=== PATIENT | male | born 1950 | race Asian ===

== ENCOUNTER 2019-04-30 22:52 | Inpatient (IN) | payer MEDICARE, MEDICAID ==
[~2019-04-30] VITALS: Ht 165.1 cm; Wt 70.9 kg
[2019-04-30] MEDS ORDERED: SODIUM CHLORIDE 0.45% 1,000 ML IV ONE (23:12)
[2019-04-30 23:36] LABS: BG BASE EXCESS -6.7 mmol/L (-2.0-2.0); BG CARBOXYHEMOGLOBIN 0.3 % (0.5-1.5); BG DEOXYHEMOGLOBIN 2.7 % (0.0-5.0); BG FRACTION INSPIRED OXYGEN 21; BG HCO3 ACT 17.4 mmol/L (22.0-26.0); BG METHEMOGLOBIN 0.2 % (0.0-1.5); BG OXYGEN SATURATION 97.3 % (92.0-98.5); BG OXYHEMOGLOBIN 96.8 % (94.0-97.0); BG PH 7.381 (7.350-7.450); BG PO2 100.7 mmHg (75.0-100.0); BG SAMPLE SITE RIGHT RADIAL; BG TOTAL HEMOGLOBIN 10.9 g/dL (12.0-18.0); BG VENT MODE ROOM AIR
[2019-05-01 00:24] LABS: BASOPHILS % 0.5 % (0.0-2.0); EOSINOPHILS % 2.7 % (0.0-5.0); HEMATOCRIT. 35.2 % (36.0-48.0); HEMOGLOBIN. 11.1 g/dL (12.0-16.0); MEAN CORPUSCULAR HEMOGLOBIN 31.9 pg (28.0-32.0); MEAN CORPUSCULAR VOLUME 100.8 fL (81.0-99.0); MEAN PLATELET VOLUME 9.8 fl (7.4-10.4); MONOCYTES % 6.9 % (2.0-8.0); NEUTROPHILS % 73.9 % (40.0-76.0); PLATELET 200 x1000/uL (130-400); RED CELL DISTRIBUTION WIDTH 13.8 % (11.6-14.6)
[2019-05-01 00:29] LABS: CHLORIDE 130 mEq/L (98-107)
[2019-05-01 01:04] LABS: CLARITY URINE TURBID (CLEAR); COLOR URINE YELLOW (YELLOW); KETONES URINE TRACE (NEGATIVE); LEUKOCYTE ESTERASE URINE 3+ (NEGATIVE); NITRITE URINE NEGATIVE (NEGATIVE); OCCULT BLOOD URINE 2+ (NEGATIVE); PROTEIN URINE 2+ (NEGATIVE); SPECIFIC GRAVITY URINE 1.016 (1.005-1.030); UROBILINOGEN URINE 0.2 E.U./dL (0.2-1.0)
[2019-05-01] MEDS ORDERED: CEFTRIAXONE 1 G PREMIX 50 ML IV ONE (02:30)
[2019-05-01] MEDS ORDERED: DEXTROSE 5% WATER 1,000 ML IV SCH (03:28)
[2019-05-01] MEDS ORDERED: ACETAMINOPHEN 650MG/20.3ML UDC PO PRN (03:30)
[2019-05-01] MEDS ORDERED: LORAZEPAM 2MG/ML CPJ IV PRN (03:30)
[2019-05-01] MEDS ORDERED: GUAIFENESIN 200MG/10ML SUGAR FREE UDC PO PRN (03:30)
[2019-05-01] MEDS ORDERED: DOCUSATE SODIUM 100MG CAPSULE PO PRN (03:30)
[2019-05-01] MEDS ORDERED: LEVOFLOXACIN 500MG PREMIX 100 ML IV SCH ×2 (03:30→10:00)
[2019-05-01] MEDS ORDERED: MAGNESIUM/ALUMINUM HYDROXIDE/SIMETHICONE 30ML UDC PO PRN (03:30)
[2019-05-01] MEDS ORDERED: ONDANSETRON HCL 4MG/2ML INJ IV PRN (03:30)
[2019-05-01] MEDS ORDERED: CLONIDINE 0.1MG TABLET PO PRN (03:30)
[2019-05-01] MEDS ORDERED: AMLO10TA80 PO (07:14)
[2019-05-01] MEDS ORDERED: AMIN30LI2 PO (07:14)
[2019-05-01] MEDS ORDERED: LIP40 PO (07:14)
[2019-05-01] MEDS ORDERED: MIRT-91 PO (07:14)
[2019-05-01] MEDS ORDERED: SENN-170 PO (07:14)
[2019-05-01] MEDS ORDERED: INSU100I24 SQ (07:14)
[2019-05-01] MEDS ORDERED: TAMS-11 PO (07:14)
[2019-05-01] MEDS ORDERED: POLY15DR31 EACHEYE (07:14)
[2019-05-01] MEDS ORDERED: LOSA100T32 PO (07:14)
[2019-05-01] MEDS ORDERED: CYAN50008 PO (07:14)
[2019-05-01] MEDS: AMLODIPINE 10MG TABLET PO SCH (09:30)
[2019-05-01] MEDS: ENOXAPARIN 30MG/0.3ML SYR SUBCUT SCH (09:30)
[2019-05-01] MEDS: DEXTROSE 5% WATER 1,000 ML IV SCH (10:52)
[2019-05-01 12:00] VITALS: BP 133/49
[2019-05-01 12:21] VITALS: BP 133/49
[2019-05-01] MEDS: SENNOSIDES 8.6MG TABLET PO SCH (13:20)
[2019-05-01 16:00] VITALS: BP 127/75
[2019-05-01 20:00] VITALS: BP 133/53
[2019-05-01] MEDS: ATORVASTATIN CALCIUM 40MG TABLET PO SCH (21:00)
[2019-05-01] MEDS: MIRTAZAPINE 15MG TABLET PO SCH (21:00)
[2019-05-01] MEDS: TAMSULOSIN HCL 0.4MG SR CAPSULE PO SCH (21:00)
[2019-05-02] VITALS: BP 131/65
[2019-05-02] MEDS: DEXTROSE 5% WATER 1,000 ML IV SCH ×2 (00:13→12:49)
[2019-05-02 04:00] VITALS: BP 133/71
[2019-05-02 05:37] LABS: CHLORIDE 129 mEq/L (98-107)
[2019-05-02 06:16] LABS: BASOPHILS % 0.5 % (0.0-2.0); EOSINOPHILS % 3.2 % (0.0-5.0); HEMATOCRIT. 31.4 % (42.0-52.0); LYMPHOCYTES % 16.3 % (20.0-50.0); MEAN CORPUSCULAR HEMOGLOBIN 31.6 pg (28.0-32.0); MEAN CORPUSCULAR VOLUME 99.2 fL (80.0-94.0); MEAN PLATELET VOLUME 10.6 fl (7.4-10.4); MONOCYTES % 6.2 % (2.0-8.0); NEUTROPHILS % 73.8 % (40.0-76.0); PLATELET 155 x1000/uL (130-400); RED BLOOD CELL COUNT 3.16 mill/uL (4.7-6.1); RED CELL DISTRIBUTION WIDTH 13.2 % (11.6-14.6)
[2019-05-02 08:00] VITALS: BP 125/75
[2019-05-02] MEDS: AMLODIPINE 10MG TABLET PO SCH (09:00)
[2019-05-02] MEDS: SENNOSIDES 8.6MG TABLET PO SCH (09:00)
[2019-05-02] MEDS: LOSARTAN POTASSIUM 100 MG TABLET PO SCH (09:00)
[2019-05-02] MEDS: LEVOFLOXACIN 250MG PREMIX 50 ML IV SCH (09:15)
[2019-05-02] MEDS: ENOXAPARIN 30MG/0.3ML SYR SUBCUT SCH (09:15)
[2019-05-02 12:00] VITALS: BP 128/69
[2019-05-02 16:00] VITALS: BP 117/57
[2019-05-02 20:00] VITALS: BP 135/85
[2019-05-02] MEDS: ATORVASTATIN CALCIUM 40MG TABLET PO SCH ×2 (20:28→20:37)
[2019-05-02] MEDS: MIRTAZAPINE 15MG TABLET PO SCH ×2 (20:28→20:37)
[2019-05-02] MEDS: TAMSULOSIN HCL 0.4MG SR CAPSULE PO SCH ×2 (20:29→20:36)
[2019-05-03] VITALS: BP 142/75
[2019-05-03] MEDS: DEXTROSE 5% WATER 1,000 ML IV SCH (03:43)
[2019-05-03 04:00] VITALS: BP 132/69
[2019-05-03 07:49] LABS: BASOPHILS % 0.3 % (0.0-2.0); EOSINOPHILS % 2.3 % (0.0-5.0); HEMATOCRIT. 33.5 % (42.0-52.0); LYMPHOCYTES % 15.2 % (20.0-50.0); MEAN CORPUSCULAR HEMOGLOBIN 31.5 pg (28.0-32.0); MEAN CORPUSCULAR VOLUME 96.1 fL (80.0-94.0); MEAN PLATELET VOLUME 10.6 fl (7.4-10.4); MONOCYTES % 6.2 % (2.0-8.0); PLATELET 154 x1000/uL (130-400); RED BLOOD CELL COUNT 3.48 mill/uL (4.7-6.1); RED CELL DISTRIBUTION WIDTH 12.9 % (11.6-14.6)
[2019-05-03 07:56] LABS: CHLORIDE 120 mEq/L (98-107)
[2019-05-03 08:00] VITALS: BP 104/56
[2019-05-03] MEDS: SENNOSIDES 8.6MG TABLET PO SCH (08:43)
[2019-05-03] MEDS: LOSARTAN POTASSIUM 100 MG TABLET PO SCH (08:44)
[2019-05-03] MEDS: AMLODIPINE 10MG TABLET PO SCH (08:44)
[2019-05-03] MEDS: ENOXAPARIN 30MG/0.3ML SYR SUBCUT SCH (09:18)
[2019-05-03] MEDS: LEVOFLOXACIN 250MG PREMIX 50 ML IV SCH (09:18)
[2019-05-03 12:00] VITALS: BP_SYST 142; BP_SYST 144; BP_DIAS 72; BP_DIAS 86
[2019-05-03 16:00] VITALS: BP 142/72
[2019-05-03 16:09] VITALS: BP 142/72
[2019-05-04] MEDS ORDERED: ENOXAPARIN 40MG/0.4ML SYR SUBCUT SCH (09:00)
== END 2019-05-03 19:10 | DRG 640 ==
LOC: ER 22:52 → EDSEX 05-01 02:26 → 5WST 05-01 02:26 → EDBEDREQTM 05-01 02:32 → EDBEDREQDT 05-01 02:32 → EDBEDREQ 05-01 02:32 → ENRESERV 05-01 04:43
PROVIDERS: ADMIT Hospitalist; ATTEND Hospitalist
DX: E87.0 Hyperosmolality and hypernatremia (principal); N17.0 Acute kidney failure with tubular necrosis; N39.0 Urinary tract infection, site not specified; E44.1 Mild protein-calorie malnutrition; E11.9 Type 2 diabetes mellitus without complications; I10 Essential (primary) hypertension; J44.9 Chronic obstructive pulmonary disease, unspecified; L85.3 Xerosis cutis; F32.9 Major depressive disorder, single episode, unspecified; R47.02 Dysphasia; L89.619 Pressure ulcer of right heel, unspecified stage; N40.0 Benign prostatic hyperplasia without lower urinary tract symptoms; R13.10 Dysphagia, unspecified; Z74.01 Bed confinement status; Z86.73 Personal history of transient ischemic attack (TIA), and cerebral infarction without residual deficits; Z93.1 Gastrostomy status; Z88.6 Allergy status to analgesic agent; Z68.26 Body mass index [BMI] 26.0-26.9, adult
CPT/HCPCS: 36415; 36600; 71045; 80048; 81003; 82375; 82805; 83605; 83735; 83880; 84484; 92610; 93970; 96365; 96375; 99291; A6261; J0696; J1650; J1956; J7042; J7070

== ENCOUNTER 2019-09-26 08:39 | Emergency (ER) | payer MEDICARE, MEDICAID ==
[~2019-09-26] VITALS: Ht 172.7 cm; Wt 60.0 kg
[~2019-09-26 08:39] MED LIST: AMIN30LI2 PO; AMLO10TA80 PO; CYAN50008 PO; EPINEPHRINE 0.1MG/ML (1:10,000) 10ML SYR ONE; INSU100I24 SQ; LIP40 PO; LOSA100T32 PO; MIRT-91 PO; POLY15DR31 EACHEYE; SENN-170 PO; SODIUM BICARBONATE 8.4% MEQ/ML 50ML VIAL IV ONE; TAMS-11 PO
[2019-09-26 08:42] VITALS: BP 0/0
[2019-09-28 14:50] LABS: COVID-19 PCR RNA NOT DETECTED
[2019-09-28 14:52] LABS: COVID-19 PCR RNA NOT DETECTED
== END 2019-09-26 11:30 | disposition expired ==
LOC: ER 08:39
DX: I46.9 Cardiac arrest, cause unspecified (principal); E11.9 Type 2 diabetes mellitus without complications; D64.9 Anemia, unspecified; I10 Essential (primary) hypertension; Z88.6 Allergy status to analgesic agent; Z79.4 Long term (current) use of insulin; Z79.899 Other long term (current) drug therapy; Z86.73 Personal history of transient ischemic attack (TIA), and cerebral infarction without residual deficits; Z87.440 Personal history of urinary (tract) infections; Z98.890 Other specified postprocedural states
CPT/HCPCS: 82962; 92950; 99285; J3490